=== PATIENT | female | born 1940 | race Two or more races ===

== ENCOUNTER 2025-01-02 14:21 | Emergency (ER) | payer MEDICARE, OTHER ==
[~2025-01-02] VITALS: Ht 165.1 cm; Wt 83.9 kg
[2025-01-02 14:33] VITALS: TEMP 98.7
[2025-01-02 16:30] VITALS: BP 135/85; O2SAT 97
== END 2025-01-02 18:17 ==
LOC: ER 14:34
DX: S30.0XXA Contusion of lower back and pelvis, initial encounter (principal); S09.8XXA Other specified injuries of head, initial encounter; E03.9 Hypothyroidism, unspecified; E11.40 Type 2 diabetes mellitus with diabetic neuropathy, unspecified; E78.5 Hyperlipidemia, unspecified; G30.9 Alzheimer's disease, unspecified; F02.80 Dementia in other diseases classified elsewhere, unspecified severity, without behavioral disturbance, psychotic disturbance, mood disturbance, and anxiety; G89.29 Other chronic pain; I10 Essential (primary) hypertension; J45.909 Unspecified asthma, uncomplicated; I48.91 Unspecified atrial fibrillation; Z88.8 Allergy status to other drugs, medicaments and biological substances; Z88.6 Allergy status to analgesic agent; W18.39XA Other fall on same level, initial encounter; Y93.89 Activity, other specified; Y92.89 Other specified places as the place of occurrence of the external cause; Y99.8 Other external cause status
CPT/HCPCS: 70450-TC; 72125-TC; 72131-TC; 72192-TC

== ENCOUNTER 2025-01-31 09:01 | Inpatient (IN) | payer MEDICARE, OTHER ==
[~2025-01-31] VITALS: Ht 165.1 cm; Wt 83.5 kg
[2025-01-31 09:32] LABS: PLATELET COUNT (AUTO) 186 K/uL (150-450); RED BLOOD CELL COUNT(AUTO) 2.89 MIL/uL (4.0-5.2); RED CELL DISTRIBUTION WIDTH 14.7 % (11.5-15.0); WHITE BLOOD COUNT (AUTO) 11.5 K/uL (4.3-11.0)
[2025-01-31 09:39] LABS: CALCIUM, SERUM 8.9 mg/dL (8.5-10.1); CREATININE 2.3 mg/dL (0.6-1.3); SODIUM SERUM 144.0 mmol/L (136-145); UREA NITROGEN, BLOOD 56.0 mg/dL (7-18)
[2025-01-31 10:10] LABS: INR 1.84 (0.91-1.10)
[2025-01-31] MEDS ORDERED: MORPHINE SULFATE INJ 2 MG/ML DISP.SYRIN ONE (10:41)
[2025-01-31] MEDS ORDERED: ONDANSETRON HCL/PF 4 MG/2 ML VIAL ONE (10:41)
[2025-01-31] MEDS ORDERED: EZET10TA32 PO (10:44)
[2025-01-31] MEDS ORDERED: BISO5TAB20 PO (10:44)
[2025-01-31] MEDS ORDERED: DEXT37.54 PO (10:44)
[2025-01-31] MEDS ORDERED: MULT-213 PO (10:44)
[2025-01-31] MEDS ORDERED: LOPE2CAP40 PO (10:44)
[2025-01-31] MEDS ORDERED: CHOL100043 PO (10:44)
[2025-01-31] MEDS ORDERED: METF-881 PO (10:44)
[2025-01-31] MEDS ORDERED: TRIA80CR12 TP (10:44)
[2025-01-31] MEDS ORDERED: BREYNA IH (10:44)
[2025-01-31] MEDS ORDERED: GABA-532 PO (10:44)
[2025-01-31] MEDS ORDERED: MELA5TAB PO (10:44)
[2025-01-31] MEDS ORDERED: LEVO150T8 PO (10:44)
[2025-01-31] MEDS ORDERED: LIDO1ADH82 TP (10:44)
[2025-01-31] MEDS ORDERED: FAMO40TA7 PO (10:44)
[2025-01-31] MEDS ORDERED: POTA-10 PO (10:44)
[2025-01-31] MEDS ORDERED: HUM100IN SQ ×2 (10:44)
[2025-01-31] MEDS ORDERED: DULO60CA64 PO (10:44)
[2025-01-31] MEDS ORDERED: ACET-73 PO (10:44)
[2025-01-31] MEDS ORDERED: LOSA1TAB36 PO (10:44)
[2025-01-31] MEDS ORDERED: DABI110C PO (10:44)
[2025-01-31] MEDS: MORPHINE SULFATE INJ 2 MG/ML DISP.SYRIN IV ONE (10:52)
[2025-01-31] MEDS: ONDANSETRON HCL/PF - ER 4 MG/2 ML VIAL IV ONE (10:53)
[2025-01-31 16:00] VITALS: BP 112/67; TEMP 98.1; O2SAT 100
[2025-01-31] MEDS ORDERED: DEXTROSE 50%-WATER 50 ML DISP.SYRIN IV PRN (16:00)
[2025-01-31] MEDS: GABAPENTIN 100 MG CAPSULE PO SCH (17:00)
[2025-01-31] MEDS: IV LR 1000 ML 1,000 ML IV PRN (17:22)
[2025-01-31] MEDS: BLOOD SUGAR DIAGNOSTIC 1 EACH STRIP IN SCH (17:34)
[2025-01-31] MEDS: ACETAMINOPHEN 325 MG TABLET PO PRN (18:31)
[2025-01-31] MEDS: MORPHINE SULFATE INJ 2 MG/ML DISP.SYRIN IV PRN (19:41)
[2025-01-31 20:00] VITALS: BP 136/56; TEMP 98.1; O2SAT 97
[2025-01-31] MEDS: ALBUTEROL FS 2.5 MG/3 ML VIAL.NEB NEB SCH (20:25)
[2025-01-31 20:26] VITALS: O2SAT 96
[2025-01-31 20:35] VITALS: O2SAT 99
[2025-01-31] MEDS: INSULIN REGULAR, HUMAN 100 UNIT/ML 3 ML VIAL SQ PRN (21:21)
[2025-02-01] VITALS (12 sets, daily range): BP systolic 102–132; BP diastolic 45–90; TEMP 96.3–99; O2SAT 94–100
[2025-02-01 06:23] LABS: PLATELET COUNT (AUTO) 216 K/uL (150-450); RED BLOOD CELL COUNT(AUTO) 2.58 MIL/uL (4.0-5.2); RED CELL DISTRIBUTION WIDTH 15.1 % (11.5-15.0); WHITE BLOOD COUNT (AUTO) 9.5 K/uL (4.3-11.0)
[2025-02-01 06:42] LABS: APPEARANCE,URINE TURBID (CLEAR); BLOOD, URINE NEGATIVE Ery/uL (NEGATIVE); LEUKOCYTE ESTERASE ,URINE NEGATIVE (NEGATIVE); NITRITE, URINE NEGATIVE (NEGATIVE); UGLUCOSE NEGATIVE (NEGATIVE)
[2025-02-01] MEDS: LEVOTHYROXINE SODIUM 75 MCG TABLET PO SCH (07:45)
[2025-02-01] MEDS: PANTOPRAZOLE 40 MG TABLET.DR PO SCH (07:45)
[2025-02-01] MEDS: BUDESONIDE RESPULE INH 0.5 MG/2 ML AMPUL.NEB NEB SCH (07:46)
[2025-02-01] MEDS: MULTIVIT W/MINERALS 1 TAB TABLET PO SCH (08:03)
[2025-02-01] MEDS: EZETIMIBE 10 MG TABLET PO SCH (08:03)
[2025-02-01] MEDS: DULOXETINE HCL 30 MG CAPSULE.DR PO SCH (08:03)
[2025-02-01] MEDS: BISOPROLOL FUMARATE 5 MG TABLET PO SCH (08:06)
[2025-02-01 08:26] LABS: IRON, SERUM 34.0 ug/dl (50-175)
[2025-02-01 10:39] LABS: CALCIUM, SERUM 9.0 mg/dL (8.5-10.1); CREATININE 1.6 mg/dL (0.6-1.3); PHOSPHORUS 2.9 mg/dL (2.5-4.9); SODIUM SERUM 146.0 mmol/L (136-145); UREA NITROGEN, BLOOD 49.0 mg/dL (7-18)
[2025-02-02] VITALS (25 sets, daily range): BP systolic 113–143; BP diastolic 43–84; TEMP 97.7–98.6; O2SAT 91–100
[2025-02-02 08:05] LABS: PLATELET COUNT (AUTO) 225 K/uL (150-450); RED BLOOD CELL COUNT(AUTO) 2.16 MIL/uL (4.0-5.2); RED CELL DISTRIBUTION WIDTH 14.4 % (11.5-15.0); WHITE BLOOD COUNT (AUTO) 8.3 K/uL (4.3-11.0)
[2025-02-02] MEDS ORDERED: ANESTHESIA TRAY IN PYXIS 1 EA TRAY MC ONE (08:17)
[2025-02-02] MEDS ORDERED: BUPIVACAINE 0.5 % PF 150 MG/30 ML VIAL ONE (08:18)
[2025-02-02] MEDS ORDERED: BUPIVACAINE 0.25% 75 MG/30 ML VIAL ONE (08:18)
[2025-02-02 08:25] LABS: INR 1.08 (0.91-1.10)
[2025-02-02 08:30] LABS: ASPARTATE AMINOTRANSFERASE 22.0 U/L (15-37); CALCIUM, SERUM 8.2 mg/dL (8.5-10.1); CREATININE 1.4 mg/dL (0.6-1.3); PHOSPHORUS 2.9 mg/dL (2.5-4.9); SODIUM SERUM 139.0 mmol/L (136-145); TOTAL PROTEIN, SERUM 6.3 g/dL (6.4-8.2); UREA NITROGEN, BLOOD 48.0 mg/dL (7-18)
[2025-02-02] MEDS: CYANOCOBALAMIN 500 MCG TABLET PO SCH (08:33)
[2025-02-02 08:35] LABS: LYMPHOCYTES % (MANUAL) 19 % (16-48); MONOCYTES % (MANUAL) 5 % (0-11.0); NEUTROPHILS % (MANUAL) 76 (42-76); PLATELET ESTIMATE ADEQUATE
[2025-02-02 08:36] LABS: CREATINE KINASE, TOTAL 382.0 U/L (26-192)
[2025-02-02 13:06] LABS: IRON, SERUM 36 ug/dl (50-175)
[2025-02-02] MEDS: SOD FERRIC GLUC 125 MG in IV NS 0.9% 100 ML IV SCH (15:10)
[2025-02-03] VITALS (9 sets, daily range): BP systolic 124–150; BP diastolic 48–113; TEMP 97–98.4; O2SAT 91–99
[2025-02-03] MEDS ORDERED: BUPIVACAINE 0.25% 75 MG/30 ML VIAL ONE (08:00)
[2025-02-03] MEDS ORDERED: TRANEXAMIC ACID 1,000 MG/10 ML VIAL ONE (08:00)
[2025-02-03 08:36] LABS: CREATININE, URINE 78.3 MG/DL (30.0-125.0); URINE TOTAL PROTEIN 39.3 mg/dL (0-11.9)
[2025-02-03] MEDS ORDERED: FENTANYL PF 250MCG/5ML AMPUL ONE (11:05)
[2025-02-03] MEDS ORDERED: ROCURONIUM BROMIDE 50 MG/5 ML ONE (11:05)
[2025-02-03 11:07] LABS: PTH, INTACT 30 pg/mL (15-65)
[2025-02-03] MEDS: INSULIN GLARGINE, 100 UNIT/ML CARTRIDGE SQ SCH (11:30)
[2025-02-03] MEDS ORDERED: FENTANYL PF 100MCG/2ML AMPUL ONE (13:08)
[2025-02-03] MEDS: ONDANSETRON HCL/PF 4 MG/2 ML VIAL IVP PRN (14:15)
[2025-02-03 14:48] LABS: PLATELET COUNT (AUTO) 281 K/uL (150-450); RED BLOOD CELL COUNT(AUTO) 3.45 MIL/uL (4.0-5.2); RED CELL DISTRIBUTION WIDTH 14.9 % (11.5-15.0); WHITE BLOOD COUNT (AUTO) 14.8 K/uL (4.3-11.0)
[2025-02-03 17:04] LABS: ASPARTATE AMINOTRANSFERASE 29.0 U/L (15-37); CALCIUM, SERUM 7.8 mg/dL (8.5-10.1); CREATININE 1.2 mg/dL (0.6-1.3); PHOSPHORUS 2.5 mg/dL (2.5-4.9); SODIUM SERUM 139.0 mmol/L (136-145); TOTAL PROTEIN, SERUM 6.5 g/dL (6.4-8.2); UREA NITROGEN, BLOOD 28.0 mg/dL (7-18)
[2025-02-03] MEDS: ANCEF 1 GM/50 ML D5W IV SCH (19:46)
[2025-02-04] VITALS (13 sets, daily range): BP systolic 109–145; BP diastolic 40–53; TEMP 98.6–99.9; O2SAT 92–98
[2025-02-04 07:07] LABS: ASPARTATE AMINOTRANSFERASE 25.0 U/L (15-37); CALCIUM, SERUM 7.8 mg/dL (8.5-10.1); CREATININE 1.2 mg/dL (0.6-1.3); PHOSPHORUS 1.8 mg/dL (2.5-4.9); PLATELET COUNT (AUTO) 238 K/uL (150-450); RED BLOOD CELL COUNT(AUTO) 3.27 MIL/uL (4.0-5.2); RED CELL DISTRIBUTION WIDTH 14.9 % (11.5-15.0); SODIUM SERUM 139.0 mmol/L (136-145); TOTAL PROTEIN, SERUM 6.0 g/dL (6.4-8.2); UREA NITROGEN, BLOOD 30.0 mg/dL (7-18); WHITE BLOOD COUNT (AUTO) 8.0 K/uL (4.3-11.0)
[2025-02-04] MEDS: CYANOCOBALAMIN 100 MCG TABLET PO SCH (08:56)
[2025-02-04] MEDS: INSULIN GLARGINE, 100 UNIT/ML CARTRIDGE SQ SCH (09:13)
[2025-02-04] MEDS: NEUTRA PHOS 1 POWD.PACKET PO ONE (10:38)
[2025-02-04] MEDS ORDERED: DABIGATRAN ETEXILATE MESYLATE 150 MG CAPSULE PO SCH (11:00)
[2025-02-04 12:07] LABS: FREE KAPPA LT CHAINS SERUM 45.4 mg/L (3.3-19.4); FREE LAMBDA LT CHAIN SERUM 43.7 mg/L (5.7-26.3); HAPTOGLOBIN 396 mg/dL (41-333); IMMUNOGLOBULIN A, SERUM 292 mg/dL (64-422); IMMUNOGLOBULIN M, SERUM 21 mg/dL (26-217); KAPPA/LAMBDA RATIO SERUM 1.04 (0.26-1.65)
[2025-02-04] MEDS: CLOTRIMAZOLE 1% 15 GM TUBE TP SCH (17:34)
[2025-02-04] MEDS: Z GUARD REMEDY 4 OZ OINT TP PRN (17:41)
[2025-02-04] MEDS: DABIGATRAN ETEXILATE MESYLATE 75 MG CAPSULE PO SCH (17:43)
[2025-02-05] VITALS (12 sets, daily range): BP systolic 149–154; BP diastolic 48–52; TEMP 98.1–99; O2SAT 92–99
[2025-02-05 01:07] LABS: CARCINOEMBRYONIC ANTIGEN (CEA) 1.7 ng/mL (0.0-4.7)
[2025-02-05 06:07] LABS: *SPE A/G RATIO 0.8 (0.7-1.7); *SPE ALBUMIN 2.4 g/dL (2.9-4.4); *SPE ALPHA-1-GLOBULIN 0.3 g/dL (0.0-0.4); *SPE ALPHA-2-GLOBULIN 1.1 g/dL (0.4-1.0); *SPE BETA GLOBULIN 0.9 g/dL (0.7-1.3); *SPE GLOBULIN, TOTAL 3.0 g/dL (2.2-3.9); *SPE M-SPIKE Not Observed g/dL (Not Observed); *SPE PROTEIN TOTAL 5.4 g/dL (6.0-8.5); *SPEGAMMA GLOBULIN 0.7 g/dL (0.4-1.8)
[2025-02-05 07:54] LABS: ASPARTATE AMINOTRANSFERASE 25.0 U/L (15-37); CALCIUM, SERUM 7.9 mg/dL (8.5-10.1); CREATININE 0.9 mg/dL (0.6-1.3); PHOSPHORUS 1.9 mg/dL (2.5-4.9); SODIUM SERUM 139.0 mmol/L (136-145); TOTAL PROTEIN, SERUM 5.8 g/dL (6.4-8.2); UREA NITROGEN, BLOOD 16.0 mg/dL (7-18)
[2025-02-05 08:07] LABS: PLATELET COUNT (AUTO) 222 K/uL (150-450); RED BLOOD CELL COUNT(AUTO) 3.00 MIL/uL (4.0-5.2); RED CELL DISTRIBUTION WIDTH 14.9 % (11.5-15.0); WHITE BLOOD COUNT (AUTO) 9.2 K/uL (4.3-11.0)
[2025-02-05] MEDS: NEUTRA PHOS 1 POWD.PACKET PO ONE (10:24)
[2025-02-06] VITALS (9 sets, daily range): BP systolic 99–142; BP diastolic 60–76; TEMP 98.2–99.5; O2SAT 95–99
[2025-02-06 07:50] LABS: PLATELET COUNT (AUTO) 240 K/uL (150-450); RED BLOOD CELL COUNT(AUTO) 2.67 MIL/uL (4.0-5.2); RED CELL DISTRIBUTION WIDTH 15.2 % (11.5-15.0); WHITE BLOOD COUNT (AUTO) 7.8 K/uL (4.3-11.0)
[2025-02-06 08:22] LABS: CREATININE 0.9 mg/dL (0.6-1.3); PHOSPHORUS 1.9 mg/dL (2.5-4.9); SODIUM SERUM 139.0 mmol/L (136-145); UREA NITROGEN, BLOOD 14.0 mg/dL (7-18)
[2025-02-06 08:30] LABS: CALCIUM, SERUM 8.1 mg/dL (8.5-10.1)
[2025-02-06] MEDS: NEUTRA PHOS 1 POWD.PACKET PO ONE (16:13)
[2025-02-07 01:51] VITALS: O2SAT 94
[2025-02-07 02:06] VITALS: O2SAT 97
[2025-02-07] MEDS ORDERED: PANT40TA49 PO (07:19)
[2025-02-07 07:30] VITALS: O2SAT 98
[2025-02-07 07:37] VITALS: O2SAT 99
[2025-02-07] MEDS: PANTOPRAZOLE 40 MG/PACK PACK PO SCH (07:39)
[2025-02-07 08:00] VITALS: BP 137/44; TEMP 97.9; O2SAT 99
[2025-02-07 08:14] LABS: CALCIUM, SERUM 8.2 mg/dL (8.5-10.1); CREATININE 0.9 mg/dL (0.6-1.3); SODIUM SERUM 140.0 mmol/L (136-145); UREA NITROGEN, BLOOD 13.0 mg/dL (7-18)
[2025-02-07 08:21] VITALS: BP 137/60
[2025-02-07 09:26] LABS: PLATELET COUNT (AUTO) 246 K/uL (150-450); RED BLOOD CELL COUNT(AUTO) 2.89 MIL/uL (4.0-5.2); RED CELL DISTRIBUTION WIDTH 15.7 % (11.5-15.0); WHITE BLOOD COUNT (AUTO) 7.2 K/uL (4.3-11.0)
== END 2025-02-07 12:40 | DRG 480 ==
LOC: ER 09:06 → MED 12:35
PROVIDERS: ADMIT Nurse Practitioner Family; ATTEND Internal Medicine
PROC: 30233N1 Transfusion of Nonautologous Red Blood Cells into Peripheral Vein, Percutaneous Approach (ICD-10-PCS; principal; 2025-02-02)
PROC: 0QS706Z Reposition Left Upper Femur with Intramedullary Internal Fixation Device, Open Approach (ICD-10-PCS; 2025-02-03)
DX: M80.852A Other osteoporosis with current pathological fracture, left femur, initial encounter for fracture (principal); G93.41 Metabolic encephalopathy; N17.9 Acute kidney failure, unspecified; E87.0 Hyperosmolality and hypernatremia; I13.0 Hypertensive heart and chronic kidney disease with heart failure and stage 1 through stage 4 chronic kidney disease, or unspecified chronic kidney disease; W18.30XA Fall on same level, unspecified, initial encounter; Z79.84 Long term (current) use of oral hypoglycemic drugs; Z79.4 Long term (current) use of insulin; K21.9 Gastro-esophageal reflux disease without esophagitis; J45.909 Unspecified asthma, uncomplicated; I48.91 Unspecified atrial fibrillation; E03.9 Hypothyroidism, unspecified; E11.22 Type 2 diabetes mellitus with diabetic chronic kidney disease; N18.9 Chronic kidney disease, unspecified; D72.829 Elevated white blood cell count, unspecified; E78.5 Hyperlipidemia, unspecified; E88.09 Other disorders of plasma-protein metabolism, not elsewhere classified; F03.90 Unspecified dementia, unspecified severity, without behavioral disturbance, psychotic disturbance, mood disturbance, and anxiety; I50.9 Heart failure, unspecified; E86.9 Volume depletion, unspecified; E83.9 Disorder of mineral metabolism, unspecified; D64.9 Anemia, unspecified; D50.9 Iron deficiency anemia, unspecified; Z90.5 Acquired absence of kidney; S70.02XA Contusion of left hip, initial encounter; Y93.9 Activity, unspecified; Y92.89 Other specified places as the place of occurrence of the external cause
CPT/HCPCS: 36415; 70450-TC; 71045-TC; 71250-TC; 72125-TC; 72170-TC; 73502; 73552; 73700-TC; 76770-TC; 80048-TC; 80053-TC; 81001; 82247-TC; 82248-TC; 82378; 82550-TC; 82553; 82570-TC; 82607-TC; 82728-TC; 82784; 82962-TC; 83010; 83540-TC; 83615-TC; 83735-TC; 83921; 83935-TC; 83970; 84100-TC; 84155; 84165; 84300-TC; 84439-TC; 84443-TC; 85025-TC; 85027-TC; 85045-TC; 85610-TC; 85730-TC; 86334; 86850-TC; 86880-TC; 87081-TC; 92526; 92611-TC; 93307-TC; 94760-TC; 94761-TC; 94799-TC; 97110-TC; 97112-TC; 97530-TC; 97535-TC; A4217; A4223; A6209; A6253; C1713; G0378; J0690; J1815; J1885; J2270; J2405; J2704; J2916; J3010; J3490; J7030; J7050; J7060; J7120; P9016